=== PATIENT | female | born 1985 | race Caucasian/White ===

== ENCOUNTER → 2023-04-12 17:24 | Outpatient (CLI) | payer OTHER, SELFPAY ==
[2023-04-12 17:42] LABS: Hematocrit 37.5 % (36-46); Hemoglobin 12.9 g/dL (12.0-16.0); Mean Corpuscular HGB Conc 34.3 % (30-36); Mean Corpuscular Hemoglobin 28.9 PG (26-34); Mean Corpuscular Volume 84.4 fL (80-100); Platelet Count 209 X10^3/uL (150-400); Red Blood Cell Count 4.44 X10^6/uL (4.0-5.2); Red Cell Distribution Width 13.8 % (11.6-14.8); White Blood Cell Count 6.9 X10^3/uL (4.5-11.0)
== END ==
PROVIDERS: Referring Provider Family Medicine; Visit Provider Family Medicine
DX: Z01.818 Encounter for other preprocedural examination (principal); Z98.84 Bariatric surgery status
CPT/HCPCS: 36415; 85027

== ENCOUNTER → 2023-11-15 10:03 | Outpatient (CLI) | payer OTHER, SELFPAY | LOC: WC 10:20 | PROVIDERS: Visit Provider Physician Assistant | DX: L90.5 Scar conditions and fibrosis of skin (principal) | CPT/HCPCS: 99202; 99212 ==